=== PATIENT | male | born 1965 | race Caucasian/White ===

== ENCOUNTER 2018-11-05 06:25 | Inpatient (IN) ==
--- NOTE | 2018-11-05 06:35 | PROVIDER DOCUMENTATION ---
HPI-Neurological Disorder - General Chief Complaint: Stroke-Like Symptoms Stated Complaint: L side weakness Time Seen by Provider: 11/05/18 06:28 Source: patient Allergies/Adverse Reactions: Patient Allergies Allergy/AdvReac Type Severity Reaction Status Date / Time bee venom protein (honey bee) Allergy Severe ANAPHYLAXIS Verified 01/19/18 17:02 gabapentin Allergy Unknown Verified 01/19/18 17:02 codeine AdvReac Intermediate DIZZINESS Verified 01/19/18 17:02 Home Medications: Home Medication List Medication Instructions Recorded Confirmed Last Taken Type Clonazepam 0.5 mg PO QHS 05/01/17 05/30/17 04/30/17 22:00 History Duloxetine [Cymbalta] 60 mg PO DAILY 05/01/17 05/30/17 04/30/17 22:00 History Ivabradine HCl [Corlanor] 7.5 mg PO BID 05/01/17 05/30/17 04/30/17 22:00 History Losartan [Cozaar] 50 mg PO DAILY 05/01/17 05/30/17 04/30/17 22:00 History Meloxicam [Mobic] 15 mg PO QHS 05/01/17 05/30/17 04/30/17 22:00 History Ropinirole HCl [Requip] 2 mg PO QHS 05/01/17 05/30/17 04/30/17 22:00 History Levofloxacin [Levaquin] 500 mg PO DAILY #10 tab 06/05/17 Unknown Rx Meloxicam [Mobic] 15 mg PO DAILY #30 tab 06/05/17 Unknown Rx - History of Present Illness-Neuro Nature of Presenting Problem: 53 y/o WM with hx of A-fib c/o stroke symptoms since waking this am where he has deficit to lt arm and leg. Pt adds that he did have difficulty speaking this am but that resolved before EMS arrived. Headache Location: reports: frontal Severity: reports: mild Onset/Duration: reports: unsure Timing: reports: still present Context: reports: impaired speech, paresthesia Character of Altered Mental Status: reports: N/A Any recent trauma/injury?: reports: none Character of Deficits: reports: new weakness, altered sensation, impaired speech , decreased ability to stand, decreased ability to walk. denies: impaired swallowing New weakness or altered sensation location:: reports: LUE, LLE, left facial Cognitive Baseline: alert, oriented x3 Gait Baseline: walks without assistance Associated Symptoms: reports: headache, numbness in legs/feet, slurred speech, weakness Similar Symptoms Previously?: Yes - Seizure First time to have a seizure?: No Witnessed seizure?: No Review of Systems - Adult - REVIEW OF SYSTEMS - ADULT Constitutional: reports: no symptoms reported, see HPI Eyes: reports: no symptoms reported, see HPI Ears, Nose, Mouth & Throat: reports: no symptoms reported, see HPI Cardiovascular: reports: no symptoms reported, see HPI Respiratory: reports: no symptoms reported, see HPI Gastrointestinal: reports: no symptoms reported, see HPI Genitourinary: reports: no symptoms reported, see HPI Musculoskeletal: reports: no symptoms reported, see HPI Integumentary: reports: no symptoms reported, see HPI Neurological: reports: see HPI, headache/migraines, loss of balance, numbness, slurred speech Psychiatric: reports: no symptoms reported, see HPI Endocrine: reports: no symptoms reported, see HPI Hematologic/Lymphatic: reports: no symptoms reported, see HPI Allergic/Immunologic: reports: no symptoms reported, see HPI All Other Systems: Reviewed and Negative Past History - Adult - PAST MEDICAL HISTORY-ADULT Review of Records: reports: Nursing Assessment Review, Medications Reviewed, Social history reviewed & non-contributory. Cardiovascular: reports: HTN Neurological: reports: CVA - PRIOR SURGERIES/PROCEDURES Surgical/Procedure History: reports: reviewed, not pertinent - IMMUNIZATION STATUS Childhood Immunizations: See Nurse Assessment Flu Vaccine: See Nurse Assessment - FAMILY HISTORY Family History: reviewed, not pertinent Physical Exam- Neurological - Physical Exam-Neuro Initial Vital Signs Reviewed: Yes General Appearance: alert, mild distress Eye Exam: bilateral eye: normal inspection, PERRL, EOMI HENMT: normocephalic/atraumatic, moist mucous membranes Head Injury: no evidence of injury Neck: non-tender, full range of motion, supple, normal inspection Respiratory: chest non-tender, lungs clear, normal breath sounds, no pleuratic chest pain, no respiratory distress, no accessory muscle use Cardiovascular: normal peripheral pulses, regular rate, rhythm, no edema, no gallop, no JVD, no murmur Abdominal Exam: normal bowel sounds, non tender, soft, no organomegaly, no pulsatile mass Extremity: non-tender, normal capillary refill hand potter Exam: normal hearing, normal speech, PERRL, facial paresthesias (Lt facial para.) Coordination/Gait: normal finger to nose Motor/Sensory: weak motor strength LUE, weak motor strength LLE Neurologic: hand potter II-XII nml as tested, grossly normal, no motor/sensory deficits, abnormal hand potter II-XII, focal weakness, motor weakness, sensory deficit Integumentary: normal color, normal turgor Psych/Mental Status: normal mood/affect, normal thought content, normal thought process, oriented x 3 - Glascow Coma Scale Best Eye Response: (4) open spontaneously Best Verbal Response: (5) oriented Best Motor Response: (6) obeys commands Progress - PLAN OF CARE/RESULTS Progress/Plan/Lab Results: Orders Category Date Time Status CT HEAD W/O CONTRAST [CT] Stat Exams 11/05/18 06:28 Completed cxr [CHEST-1 VIEW] [RAD] Stat Exams 11/05/18 06:32 Completed CBC WITH ELECTRONIC DIFF [HEME] Stat Lab 11/05/18 07:00 Ordered COMPREHENSIVE METABOLIC PANEL [CHEM] Stat Lab 11/05/18 07:00 Ordered TROPONIN T Stat Lab 11/05/18 07:00 Ordered URINALYSIS [URINALYSIS] Stat Lab 11/05/18 06:32 Uncollected Ondansetron [Zofran] Med 11/05/18 07:01 Discontinued 4 mg IV NOW ONE EKG [EKG] Stat Ther 11/05/18 06:35 Ordered Result Diagrams: 11/05/18 06:55 11/05/18 06:55 - CONSULTS/PCP/HOSPITALIST Notification #1 *Consult/PCP/Hospitalist*: DR MILLER ACCEPTING FOR ADMISSIONS - CHANGE OF SHIFT REPORT (ED Provider) 1 Report Given and Care Transferred to:: Dr Polk Time of Transfer: 07:00 Items Pending: Labs, XRAY Results, CT/MRI Results Departure - Departure Date of Disposition Decision: 11/05/18 Time of Disposition Decision: 09:48 DIAGNOSIS: HTN (hypertension) CVA (cerebral vascular accident) Qualifiers: CVA mechanism: unspecified Qualified Code(s): I63.9 - Cerebral infarction, unspecified Disposition: ADMITTED INPATIENT 09 Certified Medical Emergency: Emergent Condition: Stable - Critical Care Note This patient required my direct & personal management of CC.: Yes Total Time (mins): 60 (CVA/WORK UP) Critical Care Statement: This patient required my direct personal management to treat or rule out processes, the absence of which, could potentiallly result in sudden, clinically significant life or limb threatening deterioration. Attestation - Physician/ KARIN Attestation Patient care was provided by Advanced Practice Provider:: No The physician spent face to face time with patient:: Yes Advanced Practice Provider documentation review:: Supervising physician onsite and consulted in the evaluation and care of this patient. The physician did have a face to face encounter with the patient. - NIH Stroke Scale Level of Consciousness: 0-Alert LOC Questions (ask month and age): 0-Answers Both Correctly LOC Commands (ask to open & close eyes;make a fist, let go): 0-Obeys Both Correctly Best Gaze (horizontal eye movement): 0-Normal Visual (use finger movement, counting or visual threat): 0-No Visual Loss Facial Palsy (show teeth or raise eyebrows & close eyes tght: 1-Minor Paralysis Motor Function-left arm: 2-Some Effort Against Mondovi Motor Function-right arm: 0-Normal Motor Function-left le-Some Effort Against [place] Motor Function-right le-Normal Limb Ataxia(svdqom-[id number]-[id number], or heel to garcia): 1-Present in one limb Sensory(pin prick to face,arms,trunk,legs-compare side/side): 1-Mild to Moderate Decrease in Sensation Best Language(name item/read sentence.Ex-Down to Earth): 0-No Aphasia Dysarthria(Pt read words or say words Ex.Mama,Tip-Top,Thanks: 0-Normal Ar ticulation NIH Total Score: 7 Modified Butler Score Criteria: 3-moderate disability (MILD LEFT HEMIPARESIS)
--- NOTE | 2018-11-05 06:52 | Diag Imaging Result Doc PS360 ---
EXAM: CT HEAD W/O CONTRAST HISTORY: l side weakness TECHNIQUE: CT head without contrast COMPARISON: None. FINDINGS: No parenchymal hemorrhage. No epidural or subdural hematoma. No subarachnoid hemorrhage. No mass identified on this noncontrasted exam. No hydrocephalus. No sinus opacification. IMPRESSION: No hemorrhage. Negative brain CT without contrast. This exam was performed using automated exposure control, adjustment of mA or kV according to patient size, and/or use of iterative reconstruction technique. Electronically signed by Michael Bro 11/05/2018 6:50 AM
--- NOTE | 2018-11-05 06:53 | Diag Imaging Result Doc PS360 ---
EXAM: CHEST-1 VIEW HISTORY: stroke TECHNIQUE: Chest single view COMPARISON: 06/04/2017 FINDINGS: The lungs are well expanded. The heart is not enlarged. The vessels are not distended. There are no infiltrates. No effusion identified. There has been surgery to the lower neck. IMPRESSION: Negative exam. Electronically signed by Michael Bro 11/05/2018 6:51 AM
[2018-11-05] MEDS ORDERED: ZOFRAN IV ONE (07:01)
[2018-11-05] MEDS ORDERED: ZOFRAN ONE (07:05)
[2018-11-05 07:28] LABS: BASO# 0.01 X1000 (0.0-0.2); BASO% 0.2 % (0.0-0.8); EOS# 0.21 X1000 (0.0-0.7); EOS% 3.9 % (0.0-10.0); HEMOGLOBIN 16.7 g/dL (14.0-18.0); LYMPH# 1.11 X1000 (1.2-3.4); LYMPH% 20.8 % (20.5-51.1); MCHC 34.1 g/dL (33-37); MCV 90.9 FL (81-99); MONO# 0.59 X1000 (0.11-0.59); MONO% 11.1 % (1.7-9.3); MPV 9.9 FL (7.4-10.4); NEUT# 3.41 X1000 (1.4-6.5); PLT 171 X1000 (130-400); RBC 5.39 XMIL (4.7-6.1); RDW 12.6 % (11.5-14.5); WBC 5.33 X1000 (4.8-10.8)
[2018-11-05 07:38] LABS: AGAP 10; ALB/GLOB RATIO 1.4; ALKALINE PHOSPHATASE 130 U/L (32-122); BUN 7 mg/dL (8-22); CHLORIDE 103 mmol/L (98-107); COSMO 282; CREATININE 0.8 mg/dL (0.7-1.2); ESTIMATED GFR > 60; GLUCOSE 153 mg/dL (70-104); GOT 27 U/L (10-34); GPT 27 U/L (10-44); POTASSIUM 4.3 mmol/L (3.5-5.1); SODIUM 141 mmol/L (136-145); TCO2 28 mmol/L (25-35); TOTAL BILIRUBIN 0.68 mg/dL (0.20-1.00); TOTAL PROTEIN 6.8 g/dL (6.3-8.3)
[2018-11-05] MEDS ORDERED: NORCO-7.5 PO ONE (08:20)
[2018-11-05 08:36] LABS: URINE SOURCE CATH
[2018-11-05 08:59] LABS: BILIRUBIN URINE NEGATIVE (NEGATIVE); BLOOD URINE NEGATIVE (NEGATIVE); COLOR YELLOW; GLUCOSE URINE NEGATIVE (NEGATIVE); KETONE URINE NEGATIVE (NEGATIVE); LEUKOCYTES URINE NEGATIVE (NEGATIVE); NITRITE URINE NEGATIVE (NEGATIVE); PROTEIN URINE NEGATIVE (NEGATIVE); SP GRAVITY URINE 1.002; TURBIDITY URINE CLEAR (CLEAR); UROBILINOGEN URINE NORMAL (NORMAL)
[2018-11-05 09:00] LABS: UR EPITHELIAL CELLS <10 /HPF (<10); URINE BACTERIA NEGATIVE /HPF; URINE RBC <10 /HPF (<10); URINE WBC <10 /HPF (<10)
[2018-11-05 10:48] LABS: BASO# 0.02 X1000 (0.0-0.2); BASO% 0.4 % (0.0-0.8); EOS# 0.17 X1000 (0.0-0.7); HEMATOCRIT 48.6 % (42.0-52.0); HEMOGLOBIN 16.7 g/dL (14.0-18.0); IMM GRAN# 0.02 X1000 (0.0-0.04); IMM GRAN% 0.4 % (0.0-0.5); LYMPH# 1.18 X1000 (1.2-3.4); LYMPH% 20.8 % (20.5-51.1); MCH 30.8 PG (27-31); MCHC 34.4 g/dL (33-37); MCV 89.5 FL (81-99); MONO# 0.54 X1000 (0.11-0.59); MONO% 9.5 % (1.7-9.3); MPV 9.7 FL (7.4-10.4); NEUT# 3.75 X1000 (1.4-6.5); NEUT% 65.9 % (42.2-75.2); PLT 165 X1000 (130-400); RBC 5.43 XMIL (4.7-6.1); RDW 12.4 % (11.5-14.5); WBC 5.68 X1000 (4.8-10.8)
[2018-11-05 11:06] LABS: AGAP 8; BUN 7 mg/dL (8-22); CALCIUM 8.8 mg/dL (8.8-10.2); CHLORIDE 104 mmol/L (98-107); CHOLESTEROL 155 mg/dL (0-200); COSMO 282; CREATININE 0.7 mg/dL (0.7-1.2); ESTIMATED GFR > 60; GLUCOSE 144 mg/dL (70-104); HDL 32 mg/dL (35-55); LDL 69 mg/dL; POTASSIUM 4.2 mmol/L (3.5-5.1); SODIUM 141 mmol/L (136-145); TCO2 29 mmol/L (25-35); TRIGLYCERIDES 268 mg/dL (39-160); VLDL 54 mg/dL
[2018-11-05 11:22] LABS: HEMOGLOBIN A1C 6.3 % (4.8-6.0)
--- NOTE | 2018-11-05 11:36 | EKG Report ---
Test Performed on : 11/05/2018 06:43:47 AM Test Reason : cva Blood Pressure : / mmHG Vent. Rate : 092 BPM Atrial Rate : 092 BPM P-R Int : 166 ms QRS Dur : 082 ms QT Int : 364 ms P-R-T Axes : 040 014 028 degrees QTc Int : 450 ms Normal sinus rhythm. Normal ECG No previous ECGs available Unconfirmed Result
[2018-11-05] MEDS ORDERED: TYLENOL PO PRN (18:25)
[2018-11-05] MEDS: NORCO-5 PO PRN (20:04)
--- NOTE | 2018-11-05 21:35 | HISTORY AND PHYSICAL ---
CHIEF COMPLAINT: Stroke-like symptoms, left-sided weakness, tingling and numbness, mostly weak on the left upper extremity. HISTORY OF PRESENT ILLNESS: He is a 53-year-old, white male, who came to the emergency room along with his father with above symptoms. 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 Initial CT was negative. Upon exam, he was more weak on the left hand. Babinski is negative. There were no speech impediments no swallowing difficulties. However, he claims some headache on the left side, some tingling and numbness. Basically admitted to the hospital for possible stroke versus migraine related disease. As a result, the patient was admitted to the hospital. PAST MEDICAL HISTORY: Metabolic syndrome, hyperlipidemia, hypertension, hypogonadism, migraine headaches on the left side by Dr. Linn. Left-sided kidney stones. Sleep apnea, paroxysmal atrial fibrillation, status post radiofrequency ablation, restless legs syndrome. Spondylosis C6- C7. Complex regional pain syndrome on the left side. PAST SURGICAL HISTORY: Hiatal hernia surgery, cholecystectomy, right wrist surgery, right ankle surgery, right knee arthroscopy, C-spine fusion C5-C6, C6-C7 by Dr. Hernandez. Injections of occipital headaches. Bilateral ablation of greater saphenous vein, lesser saphenous veins on the left side. Sinus surgery. MEDICATIONS: In my office, Cymbalta 60 daily, Dyazide 1 tablet daily, Lipitor 40 daily, Protonix 40 daily, Ropinirole 2 mg daily, tramadol as needed, Corlanor 7.5 p.o. b.i.d., Klonopin 0.5 daily. ALLERGIES: Reported to guaifenesin, insect bite and stings. SOCIAL HISTORY: . 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 Not working. No smoking. No alcohol. No drug abuse. FAMILY HISTORY: Father is 72 years old with back surgery and heart problems. Mom had a bilateral rotator cuff repair. HEALTH MAINTENANCE: Flu vaccine 2016, pneumococcal May 2017. Last physical exam 01/2017. REVIEW OF SYSTEMS: General/HEENT: Slight headache, tingling and numbness and weakness on the left side of the body, mostly on the left upper arm. No swallowing problem. No speech problems. No vision problems. Chronic neck pain and left-sided pain from the complex renal syndrome. Cardiopulmonary: No palpitations, PND, orthopnea. No chest pain. GI: No nausea, vomiting, abdominal pain. : No history of hesitancy, frequency, dysuria. No swelling of legs. No joint pain. No back pain. Neurologic: No weakness as above. No seizures. No dizziness. PHYSICAL EXAMINATION: VITAL SIGNS: On examination, temperature is 97.8, pulse is 88, blood pressure 132/86. 5 feet 6 inches tall, 260 pounds. HEENT: Atraumatic, normocephalic. Pupils equal, reactive to light. TMs are normal. Tongue is in midline. NECK: Supple. No lymphadenopathy. No goiter. No bruit. CHEST: Bilateral air entry. HEART: Sounds are regular. No murmur. ABDOMEN: Belly is soft, obese, nontender. Good bowel sounds. RECTAL: Deferred. EXTREMITIES: No peripheral edema or cyanosis. NEURO EXAM: Alert, oriented to person. Cranial nerves intact. Left upper extremity slightly weak. He has a swelling on the 2nd knuckle on the left hand. Motor power 5 x 5 in the left lower legs and plantar is going down. INVESTIGATIONS: CBC: White cell count 5.6, hematocrit 48, platelet 165. SMA-7: Sodium 140, potassium 4.2, chloride 104, BUN 7, creatinine 0.7. Glucose 144. A1c 6.3. LFTs were normal. Triglycerides 268, cholesterol 155, LDL 69. Urinalysis is clear. EKG: Normal sinus, nothing acute. Chest x-ray, negative exam. Prior C-spine surgery fusion. CT head, no hemorrhage negative. ASSESSMENT AND PLAN: A 53-year-old, white male with known history of paroxysmal atrial fibrillation, migraine headaches, cervical spine surgery, complex regional pain syndrome type 4 on the left hand, came in with stroke-like symptoms. I do not see any obvious deficits noted. It could be related to migraine. Plan is carotid Dopplers, MRI of the brain. Advance the diet. Physical therapy. 1. Deep vein thrombosis prophylaxis with Lovenox. 2. Paroxysmal atrial fibrillation, status post radiofrequency ablation. Continue on Ivabradine 7.5 p.o. b.i.d. 3. Hypertension: Cozaar 50 daily. 4. Chronic pain, depression, on Cymbalta 60 daily. 5. Restless legs syndrome. 6. On CPAP machine and Requip 2 mg daily. Repeat MRI of the brain tomorrow. 7. History of migraine headaches, status post occipital nerve block in [place] September 2015. 8. History of sleep apnea. Apneic index 114 per hour on CPAP machine. 9. Atypical chest pain. CT angiogram in January 2017, noncritical lesion on the LAD. 10. History of kidney stones on the left side, stable. Will follow up. cc: Star Baez MD
[2018-11-05] MEDS: ASPIRIN PO SCH (21:51)
[2018-11-05] MEDS: REQUIP PO SCH (21:51)
[2018-11-05] MEDS: LOVENOX SUBQ SCH (21:51)
[2018-11-05] MEDS: KLONOPIN PO SCH (21:51)
[2018-11-06] MEDS: IVABRADINE HCL 7.5 MG PO SCH ×3 (00:50→21:17)
[2018-11-06] MEDS ORDERED: ATIVAN IV ONE (09:50)
[2018-11-06] MEDS: ZOFRAN IV PRN ×2 (10:32→21:20)
--- NOTE | 2018-11-06 11:53 | Diag Imaging Result Doc PS360 ---
MRI BRAIN W/O CONTRAST - 11/06/2018 INDICATION: CVA COMPARISON: Head CT 11/05/2018 FINDINGS: There is no area of restricted diffusion. The ventricles and sulci are normal in size and contour. No intracranial mass or hemorrhage. Midline structures including the optic chiasm and pituitary are normal. IMPRESSION: Negative exam. Electronically signed by Greg Woo 11/06/2018 11:51 AM
[2018-11-06] MEDS: CYMBALTA PO SCH (12:38)
[2018-11-06] MEDS: COZAAR PO SCH (12:38)
--- NOTE | 2018-11-06 20:22 | PROGRESS NOTE ---
DATE: 11/06/2018 SUBJECTIVE: The patient has headache and left-sided weakness. No other complaints, other than headache. OBJECTIVE: Vital signs are stable. Blood pressure is running high. HEENT exam within normal limits. Left arm slightly weak. Chest is clear. Heart sounds are regular. No obvious deficits. ASSESSMENT AND PLAN: 1. Left-sided strokelike symptoms. Carotid Doppler is negative. Waiting for MRI of the brain. The patient is claustrophobic. Ativan was given prior to the MRI. Follow up. 2. Paroxysmal atrial fibrillation, currently in sinus. 3. Glucose intolerance. A1c 6.3. 4. Obstructive sleep apnea, on continuous positive airway pressure machine. 5. Restless legs syndrome, on Klonopin and ropinirole. 6. Chronic neck pain, status post fusion, stable. 7. Deep venous thrombosis prophylaxis with Lovenox. 8. Based on MRI, further recommendations will be followed. This weakness, probably either this could be from migraine or it could be from cervical spine disease. Once the MRI is negative, but clinically I did not see any signs of stroke. Will follow up. Level of documentation is 25 minutes. cc: Star Baez MD
[2018-11-06] MEDS: LOVENOX SUBQ SCH (21:15)
[2018-11-06] MEDS: REQUIP PO SCH (21:16)
[2018-11-06] MEDS: ASPIRIN PO SCH (21:16)
[2018-11-06] MEDS: KLONOPIN PO SCH (21:16)
[2018-11-06] MEDS: NORCO-5 PO PRN (21:20)
[2018-11-07] MEDS: ZOFRAN IV PRN (01:45)
[2018-11-07 08:22] VITALS: BP 147/93
[2018-11-07] MEDS: CYMBALTA PO SCH (09:30)
[2018-11-07] MEDS: IVABRADINE HCL 7.5 MG PO SCH (09:30)
[2018-11-07] MEDS: COZAAR PO SCH (09:30)
--- NOTE | 2018-11-08 11:12 | Carotid Study ---
DATE: 11/05/2018 PROCEDURE: Carotid duplex study. REFERRING PHYSICIAN: Star Baez MD READING PHYSICIAN: Sarthak Velazquez MD TECH: Savanah Lindsey Jerry INDICATIONS: Syncope. OBSERVED DATA RIGHT LEFT Brachial Blood Pressure Carotid Pulse Bruits: Carotid/Sub DIAGRAM OF ULTRASOUND IMAGING R L RIGHT INT EXT INT EXT LEFT Alex (cm/s) Alex (cm/s) Subclavian 85/0 Subclavian 81/0 CCA Proximal 101/24 CCA Proximal 88/15 CCA Distal 94/27 CCA Distal 65/22 Bulb 86/29 Bulb 55/20 ICA Proximal 56/19 ICA Proximal 69/23 ICA Mid 68/28 ICA Mid 56/28 ICA Distal 70/33 ICA Distal 70/38 ECA 93/15 ECA 74/13 Vertebral 38/15 Vertebral 62/20 ICA/CCA Ratio 0.7 ICA/CCA Ratio 0.8 % Stenosis 0%-39% % Stenosis 0%-39% FINDINGS: Soft plaque is seen at the takeoff of the right internal carotid artery. There are no ulcerations. There is antegrade vertebral flow bilaterally. PHYSICIAN INTERPRETATION: Mild atherosclerotic disease as described above which is not hemodynamically significant. cc: MD Star Gamboa MD
--- NOTE | 2018-11-09 04:24 | DISCHARGE SUMMARY ---
ADMISSION DATE: 11/05/2018 DISCHARGE DATE: 11/07/2018 DISCHARGING DIAGNOSIS: Left-sided weakness, presumed to be migraine. SECONDARY DIAGNOSES: 1. Complex type 1 regional pain syndrome on the left side. 2. Metabolic syndrome. 3. Hyperlipidemia. 4. Hypertension. 5. Hypogonadism. 6. History of migraine headaches on the left side. 7. History of kidney stones. 8. Sleep apnea on CPAP machine. 9. Paroxysmal atrial fibrillation. 10. Restless legs syndrome. 11. C6-C7 spondylosis. BRIEF HISTORY: Please see the H and P that was done on 11/05. In brief, he is a 53-year-old white male who came in with stroke-like symptoms, woke up from sleep, mostly weakness on the left side with tingling and numbness on the face. Clinically, I do not find any definite evidence of stroke. He was not a candidate for tPA for brain attack protocol. The patient has known history of atrial fibrillation, remained in sinus. Further workup, carotid Doppler's were negative for hemodynamic stenosis in either internal carotid system. MRI of the brain is negative. Findings were reassuring. The patient was stable at the time of discharge. LABS FOLLOWS: CBC: White cell count 5.6, hematocrit 48, platelet 165,000. SMA-7: Sodium 141, potassium 4.2, BUN 7, creatinine 0.7. Glucose 144. A1c 6.3. LFTs were normal. Triglycerides 268, cholesterol 158, LDL 69, HDL 32. Urinalysis is clear. The patient did receive pneumococcal vaccine on 06/01/2017. MRI of the brain is negative. Chest x-ray was negative. Carotid Doppler's reported negative. The patient has been advised his symptoms probably from chronic regional pain syndrome versus C- spine disease or from related to migraine. DISCHARGE INSTRUCTIONS: 1. Corlanor 7.5 p.o. b.i.d., Cymbalta 60 daily, Cozaar 50 daily, Klonopin 0.5 at bedtime, Mobic 15 daily, Requip 2 mg at bedtime, aspirin 81 mg daily. 2. A1c 6.3, recheck every 4 months. 3. LDL is at target at 69. 4. Follow up in my office in 10 days. cc: Star Baez MD
== END 2018-11-07 09:50 | disposition home or self-care (01) | DRG 57 ==
LOC: SUPCPDRO → ED 06:25 → EDIPHOLD 09:39 → 4N 15:31
PROVIDERS: ADMIT Internal Medicine; ATTEND Internal Medicine
CPT/HCPCS: 70450; 70551; 71010; 71045; 80048; 80053; 80061; 81001; 82948; 83036; 84484; 85025; 93005; 93880; 96374; 97162; 97530; 99285; A9270; J1650; J2060; J2405; XXXXX